=== PATIENT | female | born 1940 | race Caucasian/White ===

== ENCOUNTER 2017-07-05 13:59 | Outpatient (CLI) | payer MEDICARE, BC ==
[2017-07-05 14:31] LABS: TOTAL HEMOGLOBIN 9.3 G/dl (12.0-16.0)
== END 2017-07-05 23:59 | disposition home or self-care (01) ==
LOC: RT 13:59
PROVIDERS: ATTEND Internal Medicine Pulmonary Disease
DX: J45.991 Cough variant asthma (principal)
CPT/HCPCS: 85018; 94010; 94727; 94729

== ENCOUNTER 2018-07-05 15:09 | Outpatient (CLI) | payer MEDICARE, BC ==
[2018-07-05] MEDS ORDERED: BISO1TAB39 PO (21:35)
[2018-07-05] MEDS ORDERED: MIRT45TA83 (21:40)
[2018-07-05] MEDS ORDERED: ESOM40CA PO (21:40)
[2018-07-05] MEDS ORDERED: GEMF600T89 PO (21:40)
[2018-07-05] MEDS ORDERED: FLUO-1 PO (21:40)
[2018-07-05] MEDS ORDERED: ALLO300T8 PO (21:46)
[2018-07-05] MEDS ORDERED: ATOR40TA7 PO (21:46)
[2018-07-05] MEDS ORDERED: AMLO10TA PO (21:46)
[2018-07-05] MEDS ORDERED: FLEC100T PO (21:46)
[2018-07-05] MEDS ORDERED: FLUT1AER (21:46)
[2018-07-05] MEDS ORDERED: FURO20TA4 PO (21:46)
[2018-07-05] MEDS ORDERED: ALBU18HF2 INH (22:55)
[2018-07-05] MEDS ORDERED: [UNRECOGNIZED DRUG - CODE] PO (22:55)
[2018-07-05] MEDS ORDERED: GABA-530 PO (22:55)
[2018-07-05] MEDS ORDERED: DEFE500T PO (22:55)
[2018-07-05] MEDS ORDERED: MECL12.584 PO (22:56)
== END 2018-07-05 23:59 | disposition home or self-care (01) ==
LOC: SSTAY O 15:09 → EDSTATUS 07-06 08:30
PROVIDERS: ATTEND Internal Medicine Hematology & Oncology
DX: R00.1 Bradycardia, unspecified (principal)
CPT/HCPCS: 36415; 86885; 86900; 86901; 86920; 86945; 93005

== ENCOUNTER 2018-07-05 20:51 | Emergency (ER) | payer MEDICARE, BC ==
[~2018-07-05] VITALS: Ht 167.6 cm; Wt 109.5 kg
[2018-07-05] MEDS ORDERED: BISO1TAB39 PO (21:35)
[2018-07-05 21:39] LABS: HEMATOCRIT 22.9 % (35.0-45.0); HEMOGLOBIN 7.7 g/dl (12.0-16.0); MEAN CORPUSCULAR HEMOGLOBIN 33.2 PG (27.0-31.0); MEAN CORPUSCULAR HGB CONC 33.7 g/dL (33.0-36.5); MEAN CORPUSCULAR VOLUME 98.3 FL (78-98); PLATELET COUNT 85 X10'3 (140-440); RED BLOOD COUNT 2.33 X10'6 (4.20-5.60); WHITE BLOOD COUNT 2.9 X10'3 (4.5-11.0)
[2018-07-05 21:40] LABS: BASOPHILS % (AUTO) 1.2 % (0-1); EOSINOPHILS # (AUTO) 0.1 X10'3 (0-0.9); EOSINOPHILS % (AUTO) 3.7 % (0-6); LYMPHOCYTES # (AUTO) 0.5 X10'3 (1.1-4.8); LYMPHOCYTES % (AUTO) 16.5 % (21-51); MEAN PLATELET VOLUME 10.5 FL (7.4-10.4); MONOCYTES # (AUTO) 0.3 X10'3 (0-0.9); MONOCYTES % (AUTO) 10.8 % (2-12); NEUTROPHILS % (AUTO) 67.8 % (42-75)
[2018-07-05] MEDS ORDERED: ESOM40CA PO (21:40)
[2018-07-05] MEDS ORDERED: MIRT45TA83 (21:40)
[2018-07-05] MEDS ORDERED: FLUO-1 PO (21:40)
[2018-07-05] MEDS ORDERED: GEMF600T89 PO (21:40)
[2018-07-05] MEDS ORDERED: FURO20TA4 PO (21:46)
[2018-07-05] MEDS ORDERED: FLEC100T PO (21:46)
[2018-07-05] MEDS ORDERED: ALLO300T8 PO (21:46)
[2018-07-05] MEDS ORDERED: ATOR40TA7 PO (21:46)
[2018-07-05] MEDS ORDERED: AMLO10TA PO (21:46)
[2018-07-05] MEDS ORDERED: FLUT1AER (21:46)
[2018-07-05 21:52] LABS: ALANINE AMINOTRANSFERASE 10 U/L (12-78); ALBUMIN 3.2 G/DL (3.4-5.0); ALBUMIN/GLOBULIN RATIO 1.3 (1.1-1.5); ALKALINE PHOSPHATASE 55 IU/L (46-116); ANION GAP 7 (8-16); ASPARTATE AMINO TRANSFERASE 10 U/L (10-37); BLOOD UREA NITROGEN 33 MG/DL (7-18); BUN/CREATININE RATIO 22.4 (6.6-38.0); CALCIUM 8.7 MG/DL (8.5-10.1); CHLORIDE 106 MMOL/L (99-107); CREATININE 1.47 MG/DL (0.40-0.90); GLUCOSE 125 MG/DL (70-104); POTASSIUM 3.3 MMOL/L (3.5-5.1); SODIUM 145 MMOL/L (135-145); TOTAL CARBON DIOXIDE 32.3 MMOL/L (24-32); TOTAL PROTEIN 5.7 G/DL (6.4-8.2); eGFR 34 ML/MIN
[2018-07-05 21:56] LABS: INR 1.2 INR; PARTIAL THROMBOPLASTIN TIME 28 SECONDS (22-32)
[2018-07-05 22:05] LABS: ANISOCYTOSIS 3+; NUCLEATED RED BLOOD CELLS 2 /100WBC (0-0); PLATELET ESTIMATE DECREASED; TOTAL CELLS COUNTED 100
[2018-07-05 22:06] LABS: ELLIPTOCYTES FEW; LARGE PLATELETS FEW; POLYCHROMASIA FEW; TEAR DROP CELLS FEW
[2018-07-05] MEDS ORDERED: DEFE500T PO (22:55)
[2018-07-05] MEDS ORDERED: [UNRECOGNIZED DRUG - CODE] PO (22:55)
[2018-07-05] MEDS ORDERED: GABA-530 PO (22:55)
[2018-07-05] MEDS ORDERED: ALBU18HF2 INH (22:55)
[2018-07-05] MEDS ORDERED: MECL12.584 PO (22:56)
[2018-07-05] MEDS ORDERED: normal saline 1000ML IV soln IVB ONE (23:15)
[2018-07-06 00:35] VITALS: BP 140/55
[2018-07-06 00:51] VITALS: BP 129/41
[2018-07-06 04:06] VITALS: BP 100/41
[2018-07-06 04:22] VITALS: BP 118/41
[2018-07-06 06:07] VITALS: BP 116/57
== END 2018-07-06 06:27 | disposition home or self-care (01) ==
LOC: ER 20:51
DX: D64.9 Anemia, unspecified (principal); R42 Dizziness and giddiness; R60.0 Localized edema; I48.91 Unspecified atrial fibrillation; Z86.718 Personal history of other venous thrombosis and embolism; Z79.899 Other long term (current) drug therapy
CPT/HCPCS: 36415; 71045; 80053; 84484; 85025; 85610; 85730; 86885; 86900; 86901; 86920; 93005; 99284; P9016